=== PATIENT | female | born 1970 | race Caucasian/White ===

== ENCOUNTER 2016-07-13 18:11 | Emergency (ER) | payer OTHER ==
[2016-07-13] MEDS ORDERED: IBUPROFEN 800 MG TABLET PO ONE (19:02)
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
[2016-07-13 20:31] VITALS: BP 125/82
== END 2016-07-13 19:43 | disposition home or self-care (01) ==
LOC: ER 18:11
DX: M79.1 Myalgia (principal); M54.89 Other dorsalgia; M54.5 Low back pain; V49.40XA Driver injured in collision with unspecified motor vehicles in traffic accident, initial encounter
CPT/HCPCS: 99283

== ENCOUNTER 2016-07-21 11:53 | Emergency (ER) | payer OTHER ==
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
[2016-07-21 13:16] VITALS: BP 158/77
== END 2016-07-21 13:13 | disposition home or self-care (01) ==
LOC: ER 11:53
DX: R20.2 Paresthesia of skin (principal); V49.9XXA Car occupant (driver) (passenger) injured in unspecified traffic accident, initial encounter; M79.89 Other specified soft tissue disorders; Z98.890 Other specified postprocedural states
CPT/HCPCS: 99283

== ENCOUNTER 2016-09-23 08:45 | Emergency (ER) | payer OTHER ==
[2016-09-23 08:53] VITALS: BP 127/73
[2016-09-23] MEDS ORDERED: DEXAMETHASONE 4 MG TABLET PO ONE (09:22)
--- NOTE | 2016-09-23 09:24 | ER Document Report ---
ED General - General Chief Complaint: Sore Throat Stated Complaint: THROAT PAIN Time Seen by Provider: 09/23/16 09:10 TRAVEL OUTSIDE OF THE [place] IN LAST 30 DAYS: No - HPI Patient complains to provider of: Sore throat ear pain Notes: Patient is coming in for evaluation of sore throat and ear pain. Patient states sore throat and ear pain ongoing for the last 2 days patient recently returned from [facility]. Patient denies any fever chills nausea vomiting diarrhea. Denies any sick contacts denies any recent antibiotics - Related Data Allergies/Adverse Reactions: No Known Allergies Allergy (Verified 09/23/16 08:50) Past Medical History - Social History Smoking Status: Unknown if Ever Smoked Family History: Reviewed & Not Pertinent, Other - Adopted Patient has suicidal ideation: No Patient has homicidal ideation: No Pulmonary Medical History: Reports: Hx Bronchitis, Hx Pneumonia Neurological Medical History: Comment Only: Hx Migraine - Bazine Palsey Renal/ Medical History: Denies: Hx Peritoneal Dialysis Past Surgical History: Reports: Hx Section - x 5 - Immunizations Immunizations up to date: Yes Hx Diphtheria, Pertussis, Tetanus Vaccination: Yes Review of Systems - Review of Systems Constitutional: No symptoms reported EENT: Ear pain, Throat pain Cardiovascular: No symptoms reported Respiratory: No symptoms reported Gastrointestinal: No symptoms reported Genitourinary: No symptoms reported Female Genitourinary: No symptoms reported Musculoskeletal: No symptoms reported Skin: No symptoms reported Hematologic/Lymphatic: No symptoms reported Neurological/Psychological: No symptoms reported -: Yes All other systems reviewed and negative Physical Exam - Vital signs Vitals: Temp Pulse Resp BP Pulse Ox 98.6 F 98 12 127/73 H 98 09/23/16 08:49 09/23/16 08:49 09/23/16 08:49 09/23/16 08:49 09/23/16 08:49 Interpretation: Normal - General General appearance: Appears well, Alert - HEENT Head: Normocephalic, Atraumatic Eyes: Normal Conjunctiva: Normal Cornea: Normal Extraocular movements intact: Yes Eyelashes: Normal Pupils: PERRL Anterior chamber: Normal Fundascopic: Normal Ears: Normal External canal: Normal Tympanic membrane: Bulging, Purulent effusion - Right side Sinus: Normal Nasal: Normal Mouth/Lips: Normal Pharynx: Erythema, Exudate Neck: Normal - Respiratory Respiratory status: No respiratory distress Chest status: Nontender Breath sounds: Normal Chest palpation: Normal - Cardiovascular Rhythm: Regular Heart sounds: Normal auscultation Murmur: No - Abdominal Inspection: Normal Distension: No distension Bowel sounds: Normal Tenderness: Nontender Organomegaly: No organomegaly - Back Back: Normal, Nontender - Extremities General upper extremity: Normal inspection, Nontender, Normal color, Normal ROM , Normal temperature General lower extremity: Normal inspection, Nontender, Normal color, Normal ROM , Normal temperature, Normal weight bearing. No: Anderson's sign - Neurological Neuro grossly intact: Yes Cognition: Normal Orientation: AAOx4 [place] Coma Scale Eye Opening: Spontaneous Jd Coma Scale Verbal: Oriented [place] Coma Scale Motor: Obeys Commands [place] Coma Scale Total: 15 Speech: Normal Motor strength normal: LUE, RUE, LLE, RLE Sensory: Normal - Psychological Associated symptoms: Normal affect, Normal mood - Skin Skin Temperature: Warm Skin Moisture: Dry Skin Color: Normal Course - Re-evaluation Re-evalutation: 09/23/16 16:03 Examination shows signs of otitis media on the right erythema of the throat possibly consistent with strep testing however we will continue to treat with amoxicillin steroid dose was given. Patient's follow-up primary care physician. - Vital Signs Vital signs: Temp Pulse Resp BP Pulse Ox 98.6 F 98 12 127/73 H 98 09/23/16 08:49 09/23/16 08:49 09/23/16 08:49 09/23/16 08:49 09/23/16 08:49 Discharge - Discharge Clinical Impression: Sore throat Otitis media Qualifiers: Otitis media type: suppurative Chronicity: unspecified Laterality: right Spontaneous tympanic membrane rupture: without spontaneous rupture Qualified Code(s): H66.41 - Suppurative otitis media, unspecified, right ear Condition: Good Disposition: HOME, SELF-CARE Instructions: Sore Throat ([facility]), Otitis Media ([facility]) Additional Instructions: Your examination is consistent with a inner ear infection and possibly strep infection. We will start you on amoxicillin were given a dose of Decadron to aid in your pain control here in the ER. Continue to use Tylenol Motrin for pain control at home. As it is alternating every 4 hours between Tylenol and Motrin. Please take all your antibiotics. Prescriptions: Amoxicillin 1 tab PO TID #30 tab Forms: Return to Work
== END 2016-09-23 09:33 | disposition home or self-care (01) ==
LOC: ER 08:45
DX: H66.41 Suppurative otitis media, unspecified, right ear (principal); J02.9 Acute pharyngitis, unspecified; R07.0 Pain in throat; H92.09 Otalgia, unspecified ear
CPT/HCPCS: 99282